=== PATIENT | female | born 1990 | race African-American/Black ===

== ENCOUNTER 2016-12-27 23:34 | Emergency (ER) | payer OTHER ==
[~2016-12-27] VITALS: Ht 162.6 cm; Wt 59.0 kg
[~2016-12-27 23:34] MED LIST: PREN-88 PO
[2016-12-27 23:52] VITALS: BP 108/68
== END 2016-12-28 01:30 | disposition left against medical advice (07) ==
LOC: ER 23:52
DX: Z53.21 Procedure and treatment not carried out due to patient leaving prior to being seen by health care provider (principal)